=== PATIENT | male | born 1960 | race Caucasian/White ===

== ENCOUNTER 2021-07-27 00:34 | Day surgery (SDC) | payer OTHER, SELFPAY ==
[2021-07-13 14:09] VITALS: BMI 33.7
[2021-07-27 06:44] VITALS: BP 135/77; PULSE 71; RESP 18; TEMP 36.3; O2SAT 99
[2021-07-27] MEDS: LACTATED RINGERS 1,000 ML 150 ML IV CONT (07:00)
--- NOTE | 2021-07-27 07:12 | WPDGICN ---
Assessment and Plan Assessment and plan (1) History of colon polyps: Code(s): Z86.010 - Personal history of colonic polyps Status: Acute Assessment and Plan: Patient has a prior history of colon polyps. For this reason surveillance colonoscopy advised at this time. GI Consult Note Consult date/time: 07/27/21 07:12 HPI: Jt May is a 61 year old male Presents for screening colonoscopy. He has a history of colon polyps in 2017 and prior to that 2009. He states that his current weight appetite and bowel movements are normal. He denies abdominal pain. He has had no bleeding. Family history is not contributory. Patient presents today for surveillance colonoscopy. Review of Systems Review of Systems: All systems reviewed & are unremarkable except as noted in HPI and below PMFSH Past Medical History Medical History Erectile dysfunction Essential (primary) hypertension GERD without esophagitis Gout History of colon polyps Hyperlipidemia Idiopathic chronic gout, unspecified site, without tophus (tophi) Low back pain without sciatica Nasal fracture Osteoarthritis Vitamin D deficiency Surgical History Surgical History History of appendectomy (~1991) History of colonoscopy with polypectomy Dr Chawla 2016 History of tonsillectomy Family History Family History Other Malignant neoplasm of prostate Social History Social History Smoking status: Never smoker Second hand tobacco smoke exposure: No Alcohol intake: never Substance use: never Substance use type: does not use Living arrangements: with family Spiritual care concerns: No Meds Home Medications and Allergies Home Medications Medication Instructions Recorded Confirmed Type piroxicam 20 mg capsule 20 mg PO DAILY PRN cap 06/09/21 07/27/21 History cholecalciferol (vitamin D3) 50 mcg PO DAILY 07/13/21 07/27/21 History [Vitamin D3] glucos sul [id number]-zjn-[id number]-C-Mn 1 cap PO BID 07/13/21 07/27/21 History [Glucosamine Chondroitin] multivitamin 1 tablet PO DAILY 07/13/21 07/27/21 History amlodipine 10 mg-benazepril 40 mg 1 cap PO DAILY #90 cap 07/15/21 07/27/21 Rx capsule Allergies Allergy/AdvReac Type Severity Reaction Status Date / Time No Known Allergies Allergy Verified 07/13/21 14:17 Vital Signs Vital Signs - 24 hr 07/27/21 06:44 Temperature 97.4 F L Pulse Rate 71 Respiratory Rate 18 Blood Pressure 135/77 Pulse Oximetry 99 Exam Narrative: Fit physical exam reveals patient to be alert. Vital signs stable. HEENT exam is unremarkable. Patient is anicteric. Lungs are clear to auscultation and percussion. Heart is without murmur or extra sounds. Abdominal exam bowel sounds are present soft nontender with no organomegaly. Digital external rectal exam is normal.
--- NOTE | 2021-07-27 07:38 | WPDANESEPPF ---
Anes - Initial Pre Proc Eval Procedure: Operation Date: 07/27/21 08:00 Proposed Procedures p Screening Colonoscopy - Yogi Johns MD Date/Time: 07/27/21 07:38 Surgeon: Yogi Johns MD Pre Op Diagnosis: neoplasm screening, hx of colon polyps Patient Data Age: 61 Gender: M Height: 1.91 m Weight: 123.2 kg Last Vital Signs Temp 97.4 F L 07/27/21 06:44 Pulse 71 07/27/21 06:44 Resp 18 07/27/21 06:44 BP 135/77 07/27/21 06:44 Pulse Ox 99 07/27/21 06:44 Allergies Allergy/AdvReac Type Severity Reaction Status Date / Time No Known Allergies Allergy Verified 07/13/21 14:17 Home Medications Medication Instructions Recorded Confirmed Type piroxicam 20 mg capsule 20 mg PO DAILY PRN cap 06/09/21 07/27/21 History cholecalciferol (vitamin D3) 50 mcg PO DAILY 07/13/21 07/27/21 History [Vitamin D3] glucos sul [id number]-zwh-hejhi-C-Mn 1 cap PO BID 07/13/21 07/27/21 History [Glucosamine Chondroitin] multivitamin 1 tablet PO DAILY 07/13/21 07/27/21 History amlodipine 10 mg-benazepril 40 mg 1 cap PO DAILY #90 cap 07/15/21 07/27/21 Rx capsule Patient hx anesthesia problems: none Family hx anesthesia problems: none Results Review: All pre-operative results and documents have been reviewed as part of the pre-operative evaluation. [facility] Past Medical History Medical History Erectile dysfunction Essential (primary) hypertension GERD without esophagitis Gout History of colon polyps Hyperlipidemia Idiopathic chronic gout, unspecified site, without tophus (tophi) Low back pain without sciatica Nasal fracture Osteoarthritis Vitamin D deficiency Surgical History Surgical History History of appendectomy (~1991) History of colonoscopy with polypectomy Dr Chawla 2015 History of tonsillectomy Family History Family History Other Malignant neoplasm of prostate Social History Social History Smoking status: Never smoker Second hand tobacco smoke exposure: No Alcohol intake: never Substance use: never Substance use type: does not use Living arrangements: with family Spiritual care concerns: No Anes - Eval Final PreProcedure Day of Procedure 07/27/21 07:38 Patient weight: obese Heart: regular rate and rhythm Lungs: clear to auscultation Airway: Mallampati scale class II Neurological: alert and oriented Last oral intake: >/= 8 hours ASA classification: III Emergent: no Anesthetic plan: proceed Anesthesia type and monitoring: general GIVS and standard monitoring Results Review: All pre-operative results and documents have been reviewed as part of the pre-operative evaluation. Informed Consent: The patient's anesthetic plan and its attendant risks and benefits were discussed with the patient/family/POA. Questions were solicited and answers provided to the satisfaction of the patient/family/POA.
[2021-07-27 08:10] VITALS: BP 107/63; PULSE 67; RESP 18; O2SAT 98
[2021-07-27 08:20] VITALS: BP 117/72; PULSE 65; RESP 23; O2SAT 99
[2021-07-27 08:30] VITALS: BP 115/72; PULSE 62; RESP 21; O2SAT 100
== END 2021-07-27 08:37 | disposition home or self-care (01) ==
PROVIDERS: PCP Family Medicine; Visit Provider Internal Medicine Gastroenterology
PROC: 0DJD8ZZ Inspection of Lower Intestinal Tract, Via Natural or Artificial Opening Endoscopic (ICD-10-PCS; CPT 45378; principal; 2021-07-27 08:00)
DX: Z12.11 Encounter for screening for malignant neoplasm of colon (principal); K64.8 Other hemorrhoids; Z86.010 Personal history of colon polyps; I10 Essential (primary) hypertension; K21.9 Gastro-esophageal reflux disease without esophagitis; E78.5 Hyperlipidemia, unspecified; E55.9 Vitamin D deficiency, unspecified; M1A.00X0 Idiopathic chronic gout, unspecified site, without tophus (tophi); E66.9 Obesity, unspecified; Z68.33 Body mass index [BMI] 33.0-33.9, adult
CPT/HCPCS: 45378; J2704; J7120

== ENCOUNTER 2022-06-17 09:05 | Outpatient (CLI) | payer OTHER, SELFPAY ==
[2022-06-17 22:23] LABS: Kit Draw Collected
== END 2022-06-17 09:06 | disposition home or self-care (01) ==
LOC: ANHGOSHLAB 09:06
PROVIDERS: PCP Family Medicine; Visit Provider Nurse Practitioner Family
DX: Z00.00 Encounter for general adult medical examination without abnormal findings (principal); I10 Essential (primary) hypertension; E55.9 Vitamin D deficiency, unspecified; E78.5 Hyperlipidemia, unspecified; Z12.5 Encounter for screening for malignant neoplasm of prostate
CPT/HCPCS: 36415

== ENCOUNTER 2024-08-16 11:12 | Outpatient (CLI) | payer MEDICARE, OTHER, SELFPAY ==
--- OUTSIDE RECORDS SUMMARY | 2024-08-16 11:15 | XMS_ITS | Clinical Summary ---
Author Organization [facility] Address [address] [place] [address] Phone Care Team Providers Care Seat Cover Installer Name Role Phone Mac Galvan MD Primary Care Provider [phone] Cammy Yogi Melanie DO Unavailable [phone] Allergies No known active allergies Medications polyethylene glycol (MIRALAX) Powder Mix the entire bottle with 64 oz of a clear liquid. Use as directed by the office for colonoscopy prep. 255 g 0 6 Active allopurinol (ZYLOPRIM) 300 MG Tablet Take 300 mg by mouth daily. 12 7 Active Amlodipine Besy-Benazepril HCl 10-40 MG Capsule Take 1 Cap by mouth daily. 6 7 Active pantoprazole (PROTONIX) 40 MG Tablet Delayed Response Take 40 mg by mouth daily. 0 7 Active Family History Medical History Relation Name Comments Coronary Artery Disease Father Breast Cancer Mother Relation Name Status Comments Father Mother Social History Tobacco Use Types Packs/Day Years Used Date Smoking Tobacco: Never Smokeless Tobacco: Never Alcohol Use Standard Drinks/Week Comments Yes 0 (1 standard drink = 0.6 oz pur e alcohol) Rare Sex and Gender Information Value Date Recorded Sex Assigned at Not on file Legal Sex Male 8:44 PM CDT Gender Identity Not on file Sexual Orientation Not on file Plan of Treatment Health Maintenance Due Date Last Done Comments Hepatitis C Virus (HCV) Screening 1960 TdaP Immunization 1959 Cologuard 2009 Immunochemical Fecal Occult Blood 2009 Pneumococcal Immunization (5 0+ years) (1 of 1 - PCV) 2009 Zoster Immunization (1 of 2) 2009 PSA Discussion 2014 Colonoscopy 05/03/2021 05/03/2016 Colorectal Cancer Screening 05/03/2021 Influenza Immunization (#1) 2023 SARS-COV-2 Immunization (1 - 2023-25 season) 2023 Respiratory Syncytial Virus (RSV) Immunization (Adult) (1 - 1-dose 75+ series) 2034 05/03/2016 Hepatitis B Immunization Aged Out No longer eligible based on patient's age to complete this topic Meningococcal Immunization (ACWY) Aged Out No longer eligible based on patient's age to complete this topic Pneumococcal Immunization Combined Aged Out No longer eligible based on patient's age to complete this topic Rotavirus Immunization Aged Out No lo nger eligible based on patient's age to complete this topic Procedures Procedure Name Priority Date/Time Associated Diagnosis Comments COLONOSCOPY Routine 05/03/2016 from Last 3 Months or Most Recently Relevant to Health Maintenance Results * COLONOSCOPY (05/03/2016) Mac Galvan MD PROCEDURE/MINOR SURGICAL ORDERA BLES Final Result from Last 3 Months or Most Recently Relevant to Health Maintenance Care Teams Seat Cover Installer Relationship Specialty Start Date End Date Mac Galvan MD [address] [place] [address] PCP - General Family Medicine 05/04/16 Yogi Chawla DO [address] [place] [address] Gastroenterology 05/04/16
--- OUTSIDE RECORDS SUMMARY | 2024-08-16 11:15 | XMS_ITS | Continuity of Care Document ---
Author Organization [facility] Address [address] [place] [address] Phone Care Team Providers Care Internal Review And Audit Compliance Name Role Phone Biju Reyes Unavailable Unavailable Procedures Procedure Date Post-op Follow-up Visit Post-op Follow-up Visit Remove Cataract, Insert Lens Office Consultation IOLMaster Advance Directives Directive Yes / No Effective Date File Name No Information Encounters Encounter Description Practice Location Reason(s) For Visit Diagnoses Date Provider Providers Copied on Encounter [facility], [address], [place], [place], [id number], tel:[phone] [facility] No Information 1 9 Krlennynasamy Biju. [facility] [address], [facility], [place]. tel:[phone] Referring Provider: [place], [address] [facility] [address], [address]. tel:[phone] [facility], [address], [place], [place], [id number], [place] tel:[phone] [facility] No Information [address] Krishnasamy Biju. [address] [facility] [address], [place], [address], [place]. tel:[phone] Referring Provider: [place], [address], [place], [address]. tel:[phone] [facility], [address] [place] [address] [address], [place], [place], [id number], tel:[phone] [facility] No Information 9 Krishnasamy Biju. [address], [facility], . tel:[phone] Referring Provider: [place], [address] [facility] [address], [address]. tel:[phone] Office Consultation [facility], [address] [facility] [address], [place], [place], [id number], tel:[phone] [facility] No Information 9 Krlennynasamy Biju. [facility] [address], [facility], . tel:[phone] Referring Provider: [place], [address] [facility] [address], [address]. tel:[phone] Family History Family Member Type Diagnosis Age At Onset No Information Payers Payer name Insurance type Covered alliance party ID Authoriza tion(s) No Information Social History Type Description Quantity Date Captured Comments Sex Male Smoking Status No Information Chief Complaint And Reason For Visit No Information Reason For Referral Reason For Referral No Information History Of Present Illness Encounter Date Complaint History Of Prese nt Illness No Information Functional Status Date Functional Assessmen t No Information Instructions Date Instruction Additional Infor mation No Information Assessments Type Assessment Date No Information Patient Care Teams Name Effective Dates (start - stop) Status Members No Information
[2024-08-16 15:41] LABS: Kit Draw Collected
== END 2024-08-16 11:13 | disposition home or self-care (01) ==
LOC: ANHGOSHLAB 11:13
PROVIDERS: PCP Family Medicine; Visit Provider Family Medicine
DX: E78.5 Hyperlipidemia, unspecified (principal); E53.8 Deficiency of other specified B group vitamins; E55.9 Vitamin D deficiency, unspecified; I10 Essential (primary) hypertension; R73.9 Hyperglycemia, unspecified; Z12.5 Encounter for screening for malignant neoplasm of prostate
CPT/HCPCS: 36415

== ENCOUNTER 2024-08-16 11:29 | Outpatient (CLI) | payer MEDICARE, OTHER, SELFPAY ==
--- NOTE | ~2024-08-16 | XR_ITS ---
Lumbosacral Spine: AP and lateral views Clinical History: Pain Findings: The normal lordotic curve is maintained. No fracture or subluxation seen. There is severe d egenerative disc narrowing at L4-L5. There is moderate to advanced degenerative disc narrowing at L3- L4. There is moderate to advanced facet arthropathy throughout the lumbar spine. The sacroiliac joint s are normally outlined. Impression: Moderate to advanced degenerative spondylosis, especially at the L3-L4 and L4-L5 levels, as above. Reviewed, dictated and finalized at location M. Impression: Moderate to advanced degenerative spondylosis, especially at the L3-L4 and L4-L 5 levels, as above.
--- NOTE | ~2024-08-16 | XR_ITS ---
Cervical Spine: AP, lateral, open-mouth views, with neutral, flexion, and extension positioning Clinical History: Pain Findings: The normal lordotic curve is maintained. No fracture seen. There is 2 mm anterolisthesis of C4 over C5, and of C5 over C6. There is advanced degenerative disc narrowing at C6-C7. There is mode rate facet arthropathy. No instability evident on flexion or extension.. Pre-vertebral soft tissues a re unremarkable. Impression: 2 mm anterolisthesis of C4 over C5, and of C5 over C6. No instability evident. Moderate degenerative change, as above. Reviewed, dictated and finalized at location M. Impression: 2 mm anterolisthesis of C4 over C5, and of C5 over C6. No instability evident. Moderate degenerative change, as above.
== END 2024-08-16 11:30 | disposition home or self-care (01) ==
PROVIDERS: PCP Family Medicine; Visit Provider Family Medicine
DX: M43.12 Spondylolisthesis, cervical region (principal); M47.896 Other spondylosis, lumbar region; G89.29 Other chronic pain
CPT/HCPCS: 72050; 72100

== ENCOUNTER 2024-08-27 14:08 | Outpatient (CLI) | payer MEDICARE, OTHER, SELFPAY ==
--- NOTE | ~2024-08-27 | US_ITS ---
US art doppler w press LE BI INDICATION: Peripheral vascular disease TECHNIQUE: Segmental pressures and plethysmographic and Doppler waveforms of the brachial and lower e xtremity arteries were obtained. COMPARISON: None. FINDINGS: Right and left brachial artery pressures of 127 mm Hg and 118 mm Hg, respectively, are concordant (no rmal difference <= 30 mmHg). There is mixed triphasic and biphasic flow throughout the lower extremit y arteries. The right ankle-brachial index (BASIM) is 1.12 (normal >= 0.9-1.0). The right great toe-brachial index (TBI) is 0.98 (normal >= 0.60). The left BASIM is 1.07. The left TBI is 0.9. IMPRESSION: 1. Normal ankle-brachial indices. Reviewed, dictated and finalized at location A.
--- OUTSIDE RECORDS SUMMARY | 2024-08-27 14:30 | XMS_ITS | Clinical Summary ---
Author Organization [facility] Address [address] [place] [address] Phone Care Team Providers Care Medical Laboratory Assistant Name Role Phone Mac Galvan MD Primary Care Provider Cammy Yogi Melanie DO Unavailable [phone] Allergies No known active allergies Medications [...] Recently Relevant to Health Maintenance Care Teams Medical Laboratory Assistant Relationship Specialty Start Date End Date Mac Galvan MD [address] [place] [address] PCP - General Family Medicine 05/04/16 Yogi Chawla DO [address] [place] [address] Gastroenterology 05/04/16
--- OUTSIDE RECORDS SUMMARY | 2024-08-27 14:30 | XMS_ITS | Continuity of Care Document ---
Author Organization [facility] Address [address] [place] [address] Phone Care Team Providers Care Power Electronics Research Engineer Name Role Phone Biju Reyes Unavailable Unavailable Procedures Procedure Date Post-op Follow-up Visit Post-op Follow-up Visit Remove Cataract, Insert Lens Office Consultation IOLMaster Advance Directives Directive Yes / No Effective Date File Name No Information Encounters Encounter Description Practice Location Reason(s) For Visit Diagnoses Date Provider Providers Copied on Encounter [facility], [address], [place], [place], [id number], tel:[phone] [facility] No Information 9 Krlennynasamy Biju. [facility] [address], [place], [place]. tel:[phone] Referring [place], [address] [facility] [address], [place], [address]. tel:[phone] [facility], [address], [place], [place], [id number], [place] tel:[phone] [facility] No Information 200 9 Krishnasamy Biju. [address] [facility] [address], [place], [address], [place]. tel:[phone] Referring Provider: [place], [address], [place], [address]. tel:[phone] [facility], [address] [place] [address] [address], [place], [place], [id number], tel:[phone] [facility] No Information 9 Krishnasamy Biju. [address], [place], . tel:[phone] Referring Provider: [place], [address] [facility] [address], [place], [address]. tel:[phone] Office Consultation [facility], [address] [facility] [place] [address], [place], [place], [id number], tel:[phone] [facility] No Information 9 Krlennynasamy Biju. [facility] [address], [place], . tel:[phone] Referring Provider: [place], [address] [facility] [address], [place], [address]. tel:[phone] Family History Family Member Type Diagnosis Age At Onset No Information Payers Payer name Insurance type Covered libertarian ID Authoriza tion(s) No Information Social History [...]
== END 2024-08-27 14:09 | disposition home or self-care (01) ==
LOC: CHSIMG 14:09
PROVIDERS: PCP Family Medicine; Visit Provider Family Medicine
DX: I73.9 Peripheral vascular disease, unspecified (principal)
CPT/HCPCS: 93923

== ENCOUNTER 2024-11-12 08:00 | Outpatient (RCR) | payer MEDICARE, OTHER, SELFPAY ==
--- NOTE | 2024-09-12 16:59 | PTOPEVAL1 ---
Assessment and note entered by Hyun Arita, PT Evaluation Information Assessment Status Evaluation Diagnosis cervicalgia, Dorsalgia unspec, oth. chronic pain, pain in right & left leg ICD-10 Condition Codes (PT) Cervicalgia M54.2 Other ICD-10 Condition Codes ( Dorsalgia unspec, oth. chronic pain, Pain in right PT) leg, pain in left leg Onset 4-5 months, prior was manageable. 6-7 years prior Subjective Information Retired in January last year and has been doing a lot more around the house. In the morning feet feel pretty good but as the day progresses will worsen. Pt reports pain in both legs, comes and goes. Can be standing talking and all of a sudden will go numb. Bottom of feet will feel numb and sometimes won't feel sure footed. Feels like is not getting a firm mill set up. Back of leg muscles all the way down will get sore and tight. Feels weak but isn't. 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 Saw a chiropractor for many years, and at first it helped then became more irritating when would see them. sitting long periods of time will cause increased discomfort. Falling asleep in recliner waking up is painful. Sitting and driving long periods is fine until gets out. Neck: feels like sometimes would just feel like needed to pop-back into place. Neck and upper part of back feels a need to pop, and will relieve the numb/funny feeling in the feet. Sometimes will get an electrical shock from base of head to right shoulder. will get pain on either side. Sitting or laying in a bad position irritates neck . Will change pillows throughout the night for comfort. Reported Pain Level Pain Score 0,0,1: Self Report Additional Pain Score Comments neck- repositioning improves back- tylenol or ibuprofen, stretches and motions Assessment PT Clinical Summary Pt presents with c/o dorsalgia, cervicalgia, bilat posterior leg pain that is chronic in nature. 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 X- ray imaging shows significant arthritic changes in both lumbar and cervical spine. BLE pain quality appears to be muscle guarding in attempt to stabilize lumbar spine as ROM is WNL. Cervical spine though appears to have possible left sided facet impingement with muscle guarding. Pt also demonstrates possible scoliosis with possible RLE length > LLE, though will continue to monitor this prior to application of DME. Pt will benefit from physical therapy in order to address pain and function and reach patient goals of activity with minimal discomfort. Plan of Care Interventions Electrical Stimulation,Hot Pack/Cold Pack,Manual Therapy,Mechanical Traction,Neuro Re-education, Therapeutic Activities,Therapeutic Exercise,Self- Care/Home Management,Ultrasound,Other Other Interventions Bracing, taping PT Services Indicated Yes Treatment Frequency and 1-3x weekly x 20 visits Duration These treatments will address the objective and functional deficits as defined above. The patient will be advanced safely and appropriately in order for the patient to progress towards his/her prior level of function. Additional exercises will be introduced and as well as a comprehensive home exercise program upon discharge, if needed, ?to ensure carryover of functional gains achieved in the clinic. This treatment plan has been reviewed and agreement upon by the patient.
--- NOTE | 2024-09-12 17:00 | OPREHPOC ---
Outpatient Therapy Plan of Care This is a Multidisciplinary Plan of Care that may contain components documented by all disciplines (PT, OT, and ST.) PT Goal 1 Goal / Goal Update Pt will be independent in HEP Pt will verbalize understanding of diagnosis and prognosis Target Visit 10 PT Problem 2 PT Problem #2 Pain PT Goal 1 Goal / Goal Update Pt will report greatest pain level at 3/10 or less to improve ADLs and activities Target Visit 10 PT Goal 2 Goal / Goal Update Pt will report resolution of pain to return to PLOF Target Visit 20 PT Problem 3 PT Problem #3 Impaired Range of Motion PT Goal 1 Goal / Goal Update Pt will show cervical ROM equal in lateral flexion and rotation right to left for improved mobility Target Visit 10 PT Goal 2 Goal / Goal Update Pt will demonstrate cervical lateral flexion and rotation at 50% or greater for improved motion and decompression of spine Target Visit 20
--- NOTE | 2024-10-24 16:13 | PTOPPROG ---
Assessment and note entered by Hyun Arita, PT Evaluation Information Assessment Status Progress Diagnosis cervicalgia, Dorsalgia unspec, oth. chronic pain, pain in right & left leg ICD-10 Condition Codes (PT) Cervicalgia M54.2 Other ICD-10 Condition Codes ( Dorsalgia unspec, oth. chronic pain, Pain in right PT) leg, pain in left leg Onset 4-5 months, prior was manageable. 6-7 years prior Subjective Information Overall is feeling good. Feels is back to where he was when was working. Some aches and pains and some things are more difficult that others. Improvement percentage in the 90's Can lift and do stuff. Patient hasn't tested standing long periods, but hasn't had legs go numb recently. Pt reports backs of legs and pain in legs is tremendously better . Sitting long time is still stiff getting up, not so much painful but takes a few moments to get moving Neck: a whole lot better Maybe slept wrong, feels a little bit on the left Assessment PT Clinical Summary Pt has attended therapy consistently for dorsalgia , BLE pain, and cervical pain. He reports great significant improvements in all aspects of pain and function, demonstrates improved cervical spine ROM, feels his perceived improvement is in the 90 's percentile. He continues to show alignment deficits suggestive of LLE length discrepancy, and overall gluteal and core weakness were noted today. Also though improved, cervical spine rotation left is still tighter and mildly uncomfortable compared to right. Pt will benefit from continued therapy at a decreased frequency focused on high level strengthening, lumbar stabilization, and education on appropriate body mechanics to promote rn long term care progress and reduce likelihood of relapse in the future. Plan of Care Interventions Electrical Stimulation,Hot Pack/Cold Pack,Manual Therapy,Mechanical Traction,Neuro Re-education, Therapeutic Activities,Therapeutic Exercise,Self- Care/Home Management,Ultrasound,Other Other Interventions Bracing, taping PT Services Indicated Yes Treatment Frequency and 1x weekly x 10 visits Duration These treatments will address the objective and functional deficits as defined above. The patient will be advanced safely and appropriately in order for the patient to progress towards his/her prior level of function. Additional exercises will be introduced and as well as a comprehensive home exercise program upon discharge, if needed, ?to ensure carryover of functional gains achieved in the clinic. This treatment plan has been reviewed and agreement upon by the patient.
--- NOTE | 2024-10-24 16:13 | OPREHPOC ---
Outpatient Therapy Plan of Care This is a Multidisciplinary Plan of Care that may contain components documented by all disciplines (PT, OT, and ST.) PT Goal 1 Goal / Goal Update Pt will be independent in HEP Pt will verbalize understanding of diagnosis and prognosis Target Visit 10 PT Problem 2 PT Problem #2 Pain PT Goal 1 Goal / Goal Update Pt will report greatest pain level at 3/10 or less to improve ADLs and activities- met for back and legs Target Visit 10 Progress Partially Met PT Goal 2 Goal / Goal Update Pt will report resolution of pain to return to PLOF Target Visit 20 PT Problem 3 PT Problem #3 Impaired Range of Motion PT Goal 1 Goal / Goal Update Pt will show cervical ROM equal in lateral flexion and rotation right to left for improved mobility - improved gurvinder Target Visit 10 Progress Partially Met PT Goal 2 Goal / Goal Update Pt will demonstrate cervical lateral flexion and rotation at 50% or greater for improved motion and decompression of spine Target Visit 20
== END 2024-12-10 23:59 | disposition home or self-care (01) ==
LOC: ANHHIPT 08:00
PROVIDERS: PCP Family Medicine; Visit Provider Family Medicine
DX: M54.2 Cervicalgia (principal); M54.9 Dorsalgia, unspecified; M79.604 Pain in right leg; M79.605 Pain in left leg; G89.29 Other chronic pain
CPT/HCPCS: 97014; 97110; 97140; 97162; 97530; 97750; G0283

== ENCOUNTER 2025-01-24 08:00 | Outpatient (RCR) | payer MEDICARE, OTHER, SELFPAY ==
--- NOTE | 2025-01-24 09:17 | PTOPDC ---
Assessment and note entered by Hyun Arita, PT Evaluation Information Assessment Status Discharge Diagnosis cervicalgia, Dorsalgia unspec, oth. chronic pain, pain in right & left leg ICD-10 Condition Codes (PT) Cervicalgia M54.2 Other ICD-10 Condition Codes ( Dorsalgia unspec, oth. chronic pain, Pain in right PT) leg, pain in left leg Onset 4-5 months, prior was manageable. 6-7 years prior Subjective Information Pt reports pulled his back recently but iced and kept stretching and feels back to 90% overall neck is pretty good. Doesn't really bother much but notes if sleeps wrong or sits in the recliner wrong will increase again. Can go away in 10 minutes usually tries doing his neck stretches and this helps. Usually does all the stretches in the morning Doing good sitting long periods. Hasn't driven long distances in a while Was having difficulty with back of left knee but has been icing and this has helped. Reports notes he can go up and down steps easier as well. Reported Pain Level Pain Score 1,0,1: Self Report Assessment PT Clinical Summary Pt has attended therapy consistently for back, neck, and BLE pain. He reports today feeling he is at least 90% better, states the pain in the legs and the odd feeling in his feet is at least 90% resolved. His pain levels range usually rom 0-1/10 in the neck, back, and legs though has outliers rarely such as with sleeping wrong or when he pulled a muscle recently. He demonstrates greatly improved cervical and lumbar ROM and improved core strength as well. His HEP was updated for a maintenance program and he appears to have a good understanding of this and the work smart not hard aspect of his lifestyle to prevent further irritation in the future. Pt is thus being discharged from therapy for completion of his plan of care. Plan of Care PT Services Indicated No
== END 2025-01-24 11:11 | disposition home or self-care (01) ==
LOC: ANHHIPT 08:00
PROVIDERS: PCP Family Medicine; Visit Provider Family Medicine
DX: M54.2 Cervicalgia (principal); M54.9 Dorsalgia, unspecified; M79.604 Pain in right leg; M79.605 Pain in left leg; G89.29 Other chronic pain
CPT/HCPCS: 97014; 97110; 97112; 97140; 97750; G0283